=== PATIENT | female | born 1960 | race African-American/Black ===

== ENCOUNTER 2023-01-15 08:30 | Emergency (ER) | payer OTHER ==
[2023-01-15 08:44] VITALS: BP 167/70; PULSE 60; RESP 18; TEMP 98.1; BMI 20.5
[2023-01-15] MEDS ORDERED: ACETAMINOPHEN 500 MG TABLET (FP) PO ONE (09:18)
[2023-01-15] MEDS ORDERED: ACETAMINOPHEN 500 MG TABLET (FP) ONE (09:19)
== END 2023-01-15 10:12 | disposition home or self-care (01) ==
LOC: JERFT 08:30
DX: M79.671 Pain in right foot (principal); M72.2 Plantar fascial fibromatosis
CPT/HCPCS: 73630-TC-RT-FY; 99283-25